=== PATIENT | male | born 1930 | race Caucasian/White ===

== ENCOUNTER 2019-05-07 14:14 | Emergency (ER) | payer MEDICARE ==
[~2019-05-07] VITALS: Ht 175.3 cm; Wt 77.6 kg
[~2019-05-07 14:14] MED LIST: /AUGM875TA; ASPI325T; ENAL5TAB; LEVA250T; PERC5TAB8; THERGRAN; VICO5TAB
[2019-05-07] MEDS ORDERED: ASPI81TA33 PO (14:48)
[2019-05-07] MEDS ORDERED: D 1010002 PO (14:48)
[2019-05-07] MEDS ORDERED: VENTAER INH (14:48)
[2019-05-07] MEDS ORDERED: CENT1TAB2 PO (14:48)
[2019-05-07] MEDS ORDERED: ENAL2.5T PO (14:48)
[2019-05-07] MEDS ORDERED: ADV250INH INH (14:48)
[2019-05-07] MEDS ORDERED: KP F1200 PO (14:48)
[2019-05-07] MEDS ORDERED: ACETAMINOPHEN 325 MG TAB PO ONE (15:00)
--- NOTE | 2019-05-07 15:19 | REP ---
Portable chest x-ray: Single view. History: Dyspnea and cough. Comparison chest x-ray: August 16, 2016. Findings: The patient is status post prior median sternotomy. EKG electrodes are seen. Heart is not felt to be enlarged. The aorta is calcific and somewhat tortuous. There is a vascular stent visible to the left of midline at the thoracic inlet. No infiltrate is seen. Impression: No infiltrate noted. Prior sternotomy. Vascular stent at the thoracic inlet. No acute disease. Electronically Signed by Asif Beal MD 05/07/2019 03:10 P
[2019-05-07 15:34] LABS: BASO # 0.1 10^3/uL (0.0-0.2); BASO % 0.3 % (0.0-1.0); HEMATOCRIT 43.4 % (42.0-52.0); HEMOGLOBIN 14.7 g/dl (13.5-17.5); LYMPH # 0.9 10^3/uL (1.5-4.5); LYMPH % 3.9 % (24.0-44.0); MEAN CORPUSCULAR HEMOGLOBIN 30.8 pg (27.0-33.0); MEAN CORPUSCULAR HGB CONC 33.9 g/dl (32.0-36.5); MONO # 1.4 10^3/uL (0.0-0.8); MONO % 6.1 % (0.0-5.0); NEUTROPHILS # 20.8 10^3/uL (1.8-7.7); PLATELET COUNT, AUTOMATED 202 10^3/uL (150-450); RED BLOOD COUNT 4.77 10^6/uL (4.30-6.10); WHITE BLOOD COUNT 23.4 10^3/uL (4.0-10.0)
[2019-05-07 15:49] LABS: INR 1.13; PROTHROMBIN TIME 14.2 SECONDS (11.8-14.0)
[2019-05-07 16:08] LABS: ALBUMIN 3.6 GM/DL (3.2-5.2); ALT/SGPT 21 U/L (12-78); BILIRUBIN,DIRECT 0.2 MG/DL (0.0-0.2); BILIRUBIN,TOTAL 0.5 MG/DL (0.2-1.0); BLOOD UREA NITROGEN 19 MG/DL (7-18); CALCIUM LEVEL 8.9 MG/DL (8.8-10.2); CARBON DIOXIDE LEVEL 25 MEQ/L (21-32); CHLORIDE LEVEL 102 MEQ/L (98-107); CK-MB VALUE MASS 1.8 NG/ML (<3.6); CPK CREATINE PHOSPHOKINASE 167 U/L (39-308); CREATININE FOR GFR 1.23 MG/DL (0.70-1.30); GLOMERULAR FILTRATION RATE 59.4 (>35); GLUCOSE, FASTING 99 MG/DL (70-100); MB/CK RELATIVE INDEX 1.08 (< OR =4); POTASSIUM SERUM 4.5 MEQ/L (3.5-5.1); SODIUM LEVEL 136 MEQ/L (136-145); THYROID STIMULATING HORMONE 0.556 uIU/ML (0.358-3.740); TROPONIN I < 0.02 NG/ML (< 0.10)
[2019-05-07] MEDS ORDERED: NS 500 ML IV ONE (18:15)
--- NOTE | 2019-05-07 18:19 | REPVR ---
EXAM: CT Chest Without Contrast EXAM DATE/TIME: 05/07/2019 5:16 PM CLINICAL HISTORY: 88 years old, male; Abnormal findings; Abnormal diagnostic tests; Abnormal ekg; Cough; Additional info: Hypoxia leukocytosis cough ? pneumonia TECHNIQUE: Imaging protocol: Axial computed tomography images of the chest without intravenous contrast. Coronal and sagittal reformatted images were created and reviewed. 3D rendering: MIP reconstructed images were created and reviewed. Radiation optimization: All CT scans at this facility use at least one of these dose optimization techniques: automated exposure control; mA and/or kV adjustment per patient size (includes targeted exams where dose is matched to clinical indication); or iterative reconstruction. COMPARISON: CT Chest without contrast 06/17/2016 4:35 PM FINDINGS: Lungs: Mild emphysematous changes are identified bilaterally, which are both centrilobular and paraseptal. Patchy increased interstitial markings/fibrotic changes are identified within the lungs bilaterally, similar to the prior study. No new consolidation visualized. No lung mass or dominant lung nodule visualized. Pleural space: No pneumothorax. No pleural effusion. Heart: No cardiomegaly. No pericardial effusion. Mediastinum: There is a small hiatal hernia. Aorta: Atherosclerotic changes are identified within the thoracic aorta and great vessels. No aneurysmal dilatation of the thoracic aorta. Great vessels off aortic arch: A stent is identified within the proximal left subclavian artery. Lymph nodes: A mildly enlarged precarinal mediastinal lymph node is visualized measuring 1.7 x 1.1 cm, without significant progression compared to the prior study. An enlarged lymph node is also noted within the AP window. Evaluation for hilar lymph nodes is limited by the absence of intravenous contrast. Bones/joints: Hypertrophic degenerative changes are noted within the spine. Sternotomy wires are visualized. Soft tissues: Unremarkable. Spleen: A small splenule is visualized. Adrenals: There is a small calcification within the left adrenal gland. IMPRESSION: 1. Mild emphysematous changes are identified bilaterally. 2. Patchy increased interstitial markings/fibrotic changes are identified within the lungs bilaterally, similar to the prior study. No new consolidation visualized. 3. A mildly enlarged precarinal mediastinal lymph node is visualized measuring 1.7 x 1.1 cm, without significant progression compared to the prior study. An enlarged lymph node is also noted within the AP window. 4. Additional findings described above. Electronically signed by: Porfirio Liang On 05/07/2019 18:18:54 PM
[2019-05-07] MEDS ORDERED: FISH1000 PO (19:02)
[2019-05-07] MEDS ORDERED: SIMV10TA2 PO (19:02)
[2019-05-07] MEDS ORDERED: NAPR220C14 PO (19:02)
[2019-05-07 19:15] VITALS: BP 128/58
--- NOTE | 2019-05-08 09:05 | ECGEPIP ---
[facility] - ED Test Date: 2019-05-07 Pat Name: SUDARSHAN MAN Department: Room: - Gender: Male Monotypist: TC : [id number] Requested By: Karen Harris Order Number: [id number] Reading MD: Karen Harris Measurements Intervals [place] Rate: 102 P: 42 CT: 188 QRS: 18 QRSD: 155 T: 34 QT: 381 QTc: 498 Interpretive Statements SINUS TACHYCARDIA RIGHT BUNDLE BRANCH BLOCK INCREASED RATE 08/16/16 Electronically Signed on 05-08-2019 9:05:43 EDT by Karen Harris
--- NOTE | 2019-05-08 13:25 | ED PDOC ---
Post-Departure Follow-Up isiah sands faxed formal report of cct chest for fu Gopal Townsend MD May 08, 2019 13:25
== END 2019-05-07 20:13 | disposition left against medical advice (07) ==
LOC: M ED 14:14
DX: R50.9 Fever, unspecified (principal); R42 Dizziness and giddiness; R06.02 Shortness of breath; R01.1 Cardiac murmur, unspecified; I10 Essential (primary) hypertension; J45.909 Unspecified asthma, uncomplicated; Z95.1 Presence of aortocoronary bypass graft; Z79.899 Other long term (current) drug therapy; Z79.51 Long term (current) use of inhaled steroids; Z79.82 Long term (current) use of aspirin